=== PATIENT | female | born 2000 | race Two or more races ===

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

== ENCOUNTER 2018-05-20 11:06 | Outpatient (CLI) | payer OTHER ==
[~2018-05-20] VITALS: Ht 152.4 cm; Wt 52.3 kg
[2018-05-20 11:12] VITALS: BP 106/56
[2018-05-20] MEDS ORDERED: PREN1TAB60 PO (12:17)
[2018-05-20] MEDS ORDERED: iron PO (12:17)
[2018-05-20 12:31] LABS: MICROSCOPIC INDICATED
== END 2018-05-20 13:18 | disposition home or self-care (01) ==
LOC: LDOP 11:06
PROVIDERS: ATTEND Obstetrics & Gynecology
DX: O36.8130 Decreased fetal movements, third trimester, not applicable or unspecified (principal); Z3A.31 31 weeks gestation of pregnancy
CPT/HCPCS: 59025; 81001; 84112; 87086; 99201; G0463

== ENCOUNTER 2018-06-06 11:53 | Inpatient (IN) | payer OTHER ==
[~2018-06-06] VITALS: Ht 152.4 cm; Wt 50.4 kg
[~2018-06-06 11:53] MED LIST changes: +iron PO
[2018-06-06] MEDS ORDERED: LACTATED RINGERS 1,000 ML IV SCH (11:59)
[2018-06-06] MEDS ORDERED: D5%-LACTATED RINGERS 500ML IVBOLUS ONE (12:00)
[2018-06-06 12:05] VITALS: BP 118/58
[2018-06-06] MEDS ORDERED: D5%-LACTATED RINGERS 1,000 ML IV SCH ×2 (12:30→13:30)
== END 2018-06-06 14:07 | disposition home or self-care (01) | DRG 782 ==
LOC: LDOP 11:53 → LDIP 11:59
PROVIDERS: ADMIT Obstetrics & Gynecology; ATTEND Obstetrics & Gynecology
DX: O41.03X0 Oligohydramnios, third trimester, not applicable or unspecified (principal); Z3A.33 33 weeks gestation of pregnancy
CPT/HCPCS: J7120; J7121

== ENCOUNTER 2018-06-07 12:34 | Outpatient (CLI) | payer OTHER ==
[~2018-06-07] VITALS: Ht 152.4 cm; Wt 50.4 kg
[2018-06-07 12:44] VITALS: BP 109/60
== END 2018-06-07 14:25 | disposition home or self-care (01) ==
LOC: LDOP 12:34
PROVIDERS: ATTEND Obstetrics & Gynecology
DX: O36.8130 Decreased fetal movements, third trimester, not applicable or unspecified (principal); Z3A.33 33 weeks gestation of pregnancy
CPT/HCPCS: 59025; 99211; G0463

== ENCOUNTER 2018-06-09 08:12 | Outpatient (CLI) | payer OTHER ==
[~2018-06-09] VITALS: Ht 152.4 cm; Wt 50.5 kg
[2018-06-09 08:52] VITALS: BP 99/52
== END 2018-06-09 12:15 | disposition home or self-care (01) ==
LOC: LDOP 08:12
PROVIDERS: ATTEND Obstetrics & Gynecology Maternal & Fetal Medicine
DX: O26.893 Other specified pregnancy related conditions, third trimester (principal); Z3A.34 34 weeks gestation of pregnancy
CPT/HCPCS: 36415; 59025; 76815; 82728; 83021; 83540; 83550; 84466; 85660; 99211; G0463

== ENCOUNTER 2018-07-03 23:57 | Outpatient (CLI) | payer OTHER ==
[~2018-07-03] VITALS: Ht 152.4 cm; Wt 51.8 kg
[2018-07-04 00:21] VITALS: BP 105/69
[2018-07-04] MEDS ORDERED: OXYcodone/APAP 5/325MG TABLET ONE (01:42)
[2018-07-04] MEDS ORDERED: OXYcodone/APAP 5/325MG TABLET PO ONE (02:00)
[2018-07-06] MEDS ORDERED: IBUP-1222 PO (08:36)
== END 2018-07-04 01:56 | disposition home or self-care (01) ==
LOC: LDOP 23:57
PROVIDERS: ATTEND Obstetrics & Gynecology
DX: O26.893 Other specified pregnancy related conditions, third trimester (principal); Z3A.37 37 weeks gestation of pregnancy; R10.9 Unspecified abdominal pain
CPT/HCPCS: 59025; 99211; G0463

== ENCOUNTER 2018-12-19 20:10 | Emergency (ER) | payer OTHER ==
[~2018-12-19] VITALS: Ht 152.4 cm; Wt 40.0 kg
--- NOTE | 2018-12-19 20:37 | NUR ---
FEVER, VOMITING, ABD PAIN; "I THINK I HAVE THE STOMACH FLU"; FEVER NOW GONE. PT STATES VOMITING WHEN SHE EATS OR DRINKS WATER. STATES SLIGHT NAUSEA AT THIS, SOME CVRAMPING. NO DISTRESS NOTED, AA&O, SKIN WARM AND DRY. SAFETY PRECAUTIONS IN PLACE, CALL LIGHT IN REACH
[2018-12-19 20:42] LABS: MEAN CORPUSCULAR HEMOGLOBIN 19.3 pg (27.0-34.8); MEAN CORPUSCULAR HGB CONC 30.4 g/dL (32.4-35.8); MEAN CORPUSCULAR VOLUME 63.6 fL (80-100); MEAN PLATELET VOLUME 8.2 fL (7.4-10.4); PLATELET COUNT 427 x10^3/uL (130-400); RED BLOOD COUNT 5.18 x10^6/uL (3.82-5.3); RED CELL DISTRIBUTION WIDTH 20.3 % (9.6-15.2)
[2018-12-19 20:51] LABS: ALANINE AMINOTRANSFERASE 14 U/L (12-78); ALBUMIN 4.6 g/dL (3.4-5.0); ANION GAP 7 mmol/L (5-15); CALCIUM 8.4 mg/dL (8.5-10.1); CHLORIDE 106 mmol/L (98-107); CREATININE 0.69 mg/dL (0.55-1.02)
[2018-12-19] MEDS ORDERED: MAALOX/HYOSCYAMINE/LIDOCAINE 45 ML BTL ONE (20:51)
[2018-12-19] MEDS ORDERED: ONDANSETRON ODT 4 MG ONE (20:51)
[2018-12-19 20:53] LABS: ALKALINE PHOSPHATASE 102 U/L (45-117); BILIRUBIN,TOTAL 0.7 mg/dL (0.2-1.0); TOTAL PROTEIN 8.3 g/dL (6.4-8.2)
--- NOTE | 2018-12-19 20:54 | NUR ---
PT MEDICATED PER eMAR, NO DISTRESS NOTED
[2018-12-19] MEDS ORDERED: ONDANSETRON ODT 4 MG PO ONE (21:00)
[2018-12-19] MEDS ORDERED: MAALOX/HYOSCYAMINE/LIDOCAINE 45 ML BTL PO ONE (21:00)
[2018-12-19 21:09] LABS: HCG UR SG 1.036 (1.003-1.030); MICROSCOPIC NOT IND
[2018-12-19 21:13] LABS: CULTURE INDICATED? NO
[2018-12-19 21:28] LABS: MD YES
[2018-12-19 21:31] LABS: ANISOCYTOSIS 2+; BAND#(MANUAL) 0.14 x10^3/uL; BANDS%(MANUAL) 1 % (0-7); LYMPH#(MANUAL) 0.56 x10^3/uL (1-6.1); LYMPHS% (MANUAL) 4 % (22-44); MICROCYTOSIS 2+; MONOS#(MANUAL) 0.85 x10^3/uL (0.3-2.7); MONOS% (MANUAL) 6 % (2-9); SEG#(MANUAL) 12.55 x10^3/uL (1.8-8); SEGS% (MANUAL) 89 % (42-75)
[2018-12-19 21:33] LABS: <PLATELET ESTIMATE> INCREASED; <PLT MORPHOLOGY> NORMAL PLT MORPH
--- NOTE | 2018-12-19 21:36 | NUR ---
PT ATTEMPTED STOOL SAMPLE, ONLY 2 DROPS. WILL TRY AGAIN
[2018-12-19 22:30] VITALS: BP 96/58
--- NOTE | 2018-12-19 22:31 | NUR ---
TASK RN: Patient/Caregiver given discharge instructions and they have confirmed that they understand the instructions. Patient ambulatory with steady gait.
== END 2018-12-19 22:32 | disposition home or self-care (01) ==
LOC: ED 22:23
DX: K52.9 Noninfective gastroenteritis and colitis, unspecified (principal)
CPT/HCPCS: 36415; 80053; 81003; 81025; 83690; 85025; 99283; Q0162